=== PATIENT | male | born 1965 | race Caucasian/White ===

== ENCOUNTER 2024-03-05 06:25 | Inpatient (IN) | payer MEDICAID ==
[~2024-03-05] VITALS: Ht 190.5 cm; Wt 112.7 kg
[2024-03-05 07:21] LABS: Urine Bacteria None Seen /hpf (None Seen)
[2024-03-05 07:33] LABS: Basophils # (auto) 0.1 10 ^3/uL (0-0.2); Eosinophils # (auto) 0.1 10 ^3/uL (0-0.8); Eosinophils % (auto) 0.6 % (0.0-7.0); Hematocrit 43.5 % (41.0-53.0); Hemoglobin 14.6 g/dL (13.5-17.5); Lymphocytes # (auto) 1.6 10 ^3/uL (0.4-5.4); Lymphocytes % (auto) 19.3 % (10.0-50.0); Mean Corpuscular Hemoglobin 29.2 pg (28.0-32.0); Mean Corpuscular Hgb Conc. 33.6 g/dL (32.0-36.0); Mean Corpuscular Volume 86.9 fL (80.0-100.0); Monocytes # (auto) 0.6 10 ^3/uL (0-1.3); Monocytes % (auto) 7.6 % (0.0-12.0); Neutrophils % (auto) 71.5 % (37.0-80.0); Nucleated Red Blood Cells % 0.1 %; Platelet Count (auto) 199 10^3/uL (140-450); Red Blood Cells 5.01 10^6/uL (4.5-5.90); Red Cell Distribution Width 14.7 % (11.8-14.3); White Blood Cell 8.4 10^3/uL (4.4-10.8)
[2024-03-05 07:43] LABS: Chloride 103 mmol/L (98-107); Potassium 4.4 mmol/L (3.5-5.1)
[2024-03-05 07:44] LABS: Anion Gap 5 (5-15); Carbon Dioxide 27 mmol/L (20-31)
[2024-03-05 07:45] LABS: Calcium 10.3 mg/dL (8.7-10.4)
--- NOTE | 2024-03-05 07:46 | ED.PDOC ---
General HPI Comments 58 y/o M brought in y ambulance transferred from [facility] presents to ED for CC of abdominal pain. Patient states, that he has been experiencing abdominal pain since 2200 last night (03/05/24). Patient relays, that he went to [facility] to address symptoms; patient was said to have an obstructing 6mm kidney stones. Patient smokes tobacco and marijuana; denies illicit drug use. Patient denies hematuria, dysuria, flank pain, or frequency. No other symptoms or modifiers at this time. Chief Complaint: Abdominal Pain Time Seen by MD: 06:50 Reviewed notes: Nurses Notes, Medications, Allergies Information Source: Patient Mode of Arrival: EMS Severity: Mild Timing: Hours Duration: Since onset Prehospital treatment: None Symptoms: None History of: None Location: None Penile discharge: None Modifying factors: None associated signs and symptoms: Abdominal Pain Past Medical History PAST MEDICAL HISTORY: Denies Surgical History: Denies all surgeries Family History Family History: Unknown Social History Smoker: Non-Smoker Alcohol: Denies ETOH Use Drugs: Denies Drug Use Lives In: Home Constitutional: denies: chills, diaphoresis, fatigue, fever, malaise, sweats, weakness, others EENTM: denies: blurred vision, double vision, ear bleeding, ear discharge, ear drainage, ear pain, ear ringing, eye pain, eye redness, hearing loss, mouth pain, mouth swelling, nasal discharge, nose bleeding, nose congestion, nose pain, photophobia, tearing, throat pain, throat swelling, voice changes, others Respiratory: denies: cough, hemoptysis, orthopnea, SOB at rest, shortness of breath, SOB with excertion, stridor, wheezing, others Cardiovascular: denies: chest pain, dizzy spells, diaphoresis, Dyspnea on exertion, edema, irregular heart beat, left arm pain, lightheadedness, palpitations, PND, syncope, others Gastrointestinal: reports: abdominal pain; denies: abdomen distended, blood streaked bowels, constipated, diarrhea, dysphagia, difficulty swallowing, hematemesis, melena, nausea, poor appetite, poor fluid intake, rectal bleeding, rectal pain, vomiting, others Genitourinary: denies: burning, dysuria, flank pain, frequency, hematuria, incontinence, penile discharge, penile sore, pain, testicle pain, testicle swelling, urgency, others Neurological: denies: dizziness, fainting, headache, left sided numbness, left sided weakness, numbness, paresthesia, pre-existing deficit, right sided numbness, right sided weakness, seizure, speech problems, tingling, tremors, weakness, others Musculoskeletal: denies: back pain, gout, joint pain, joint swelling, muscle pain, muscle stiffness, neck pain, others Integumetry: denies: bruises, change in color, change in hair/nails, dryness, laceration, lesions, lumps, rash, wounds, others Allergic/Immunocompromised: denies: Difficulty Healing, Frequent Infections, Hives, Itching, others Hematologic/Lymphatic: denies: anemia, blood clots, easy bleeding, easy bruising, swollen glands, others Endocrine: denies: excessive hunger, excessive sweating, excessive thirst, excessive urination, flushing, intolerance to cold, intolerance to heat, unexp lained weight gain, unexplained weight loss, others Psychiatric: denies: anxiety, bipolar disorder, depression, hopeless, panic disorder, schizophrenia, sleepless, suicidal, others All Other Systems: Reviewed and Negative Physical Exam General Appearance: Moderate Distress HEENT: Normal ENT Inspection, Pharynx Normal, TMs Normal Neck: Full Range of Motion, Non-Tender, Normal, Normal Inspection Respiratory: Chest Non-Tender, Lungs Clear, No Accessory Muscle Use, No Respiratory Distress, Normal Breath Sounds Cardiovascular: No Edema, No JVD, No Murmur, No Gallop, Normal Peripheral Pulses, Regular Rate/Rhythm Breast Exam: Deferred Gastrointestinal: No Organomegaly, Non Tender, No Pulsatile Mass, Normal Bowel Sounds, Soft Genitalia: Deferred Pelvic: Deferred Rectal: Deferred Extremities: No calf tenderness, Normal capillary refill, Normal inspection, Normal range of motion, Non-tender, No pedal edema Musculoskeletal : Apperance: Normal Neurologic: Alert, roller skate assembler II-XII nml as Tested, No Motor Deficits, Normal Affect, Normal Mood, No Sensory Deficits Cerebellar Function: Normal Reflexes: Normal Skin: Dry, Normal Color, Warm Peripheral Pulses: 3+ Radial (R), 3+ Radial (L) Lymphatic: No Adenopathy Was a procedure done? Was a procedure done?: No Differential Diagnosis Kidney stone (Female): Musculoskeletal pain, Urinary obstruction, Urolithiasis Urinary Problem (Female): Impaction, Urolithiasis, UTI X-Ray, Labs, Meds, VS Vital Signs Date Time Temp Pulse Resp B/P (MAP) Pulse Ox O2 Delivery O2 Flow Rate FiO2 03/05/24 08:15 72 16 99 Room Air* 0 21 03/05/24 08:15 97.5 72 16 128/80 (96) 99 97.5 03/05/24 06:30 97.9 85 18 138/83 (101) 98 Lab Test 03/05/24 07:14 03/05/24 06:45 Range/Units White Blood Count 8.4 4.4-10.8 10^3/uL Red Blood Count 5.01 4.5-5.90 10^6/uL Hemoglobin 14.6 13.5-17.5 g/dL Hematocrit 43.5 41.0-53.0 % Mean Corpuscular Volume 86.9 80.0-100.0 fL Mean Corpuscular Hemoglobin 29.2 28.0-32.0 pg Mean Corpuscular Hemoglobin Concent 33.6 32.0-36.0 g/dL Red Cell Distribution Width 14.7 H 11.8-14.3 % Platelet Count 199 140-450 10^3/uL Mean Platelet Volume 8.4 6.9-10.8 fL Neutrophils (%) (Auto) 71.5 37.0-80.0 % Lymphocytes (%) (Auto) 19.3 10.0-50.0 % Monocytes (%) (Auto) 7.6 0.0-12.0 % Eosinophils (%) (Auto) 0.6 0.0-7.0 % Basophils (%) (Auto) 1.0 0.0-2.0 % Neutrophils # (Auto) 6.0 1.6-8.6 10 ^3/uL Lymphocytes # (Auto) 1.6 0.4-5.4 10 ^3/uL Monocytes # (Auto) 0.6 0-1.3 10 ^3/uL Eosinophils # (Auto) 0.1 0-0.8 10 ^3/uL Basophils # (Auto) 0.1 0-0.2 10 ^3/uL Nucleated Red Blood Cells 0.1 % Sodium Level 135 L 136-145 mmol/L Potassium Level 4.4 3.5-5.1 mmol/L Chloride Level 103 98-107 mmol/L Carbon Dioxide Level 27 20-31 mmol/L Anion Gap 5 5-15 Blood Urea Nitrogen 17 9-23 mg/dL Creatinine 1.55 H 0.700-1.30 mg/dL Glomerular Filtration Rate Calc 51 >90 mL/min BUN/Creatinine Ratio 11.0 10.0-20.0 Serum Glucose 97 74-106 mg/dL Calcium Level 10.3 8.7-10.4 mg/dL Urine Color Yellow Yellow Urine Clarity Turbid H Clear Urine pH 5.5 5.0-9.0 Urine Specific [place] 1.033 1.001-1.035 Urine Protein 1+ H Negative Urine Ketones Trace Negative Urine Blood 3+ H Negative /uL Urine Nitrite Negative Negative Urine Bilirubin Negative Negative Urine Urobilinogen Normal Negative mg/dL Urine Leukocyte Esterase 1+ Negative /uL Urine RBC 683 0 - 3 /hpf Urine Microscopic WBC 30 H 0-3 /HPF Urine Squamous Epithelial Cells Few <5 /hpf Urine Bacteria None seen None Seen /hpf Urine Hyaline Casts Few 0 - 2 /lpf Urine Mucus Few None Seen Urine Glucose Normal Normal mg/dL Patient alert. Complaining of abdominal pain. Transferred from [facility]. Vitals stable. Urinalysis shows blood. Establish intravenous access Was given fluids. Was given Rocephin. Was given Flomax. WBC within normal limits. Hemoglobin within normal limits. Possible kidney stone. Was given pain medication. Urology consultation. Reviewed his visit. Explained to the patient. Continue cardiac monitoring. Time of 1ST Reevaluation: 07:20 Reevaluation 1ST: Unchanged Patient Education/Counseling: Diagnosis, Treatment Family Education/Counseling: No Family Present Departure 1 Departure Time of Disposition: 08:59 Impression: Primary Impression: Kidney stone Additional Impression: Hematuria Qualified Codes: R31.9 - Hematuria, unspecified Disposition: ADMITTED INPATIENT Admit to: Med Surg Condition: Guarded Critical Care Note Critical Care Time?: No Stability Stability form required: No Heart Score Heart Score: Heart Score Response (Comments) Value History N/A 0 EKG N/A 0 Age N/A 0 Risk Factors N/A 0 Troponin N/A 0 Total 0 I personally scribed for NONA KIRKLAND MD ([email or web address]) on 03/05/24 at 07:46. Electronically submitted by Shannon Hays ([email or web address]). NONA KIRKLAND MD Mar 05, 2024 07:46
[2024-03-05 07:49] LABS: Glucose 97 mg/dL (74-106)
[2024-03-05 07:50] LABS: Blood Urea Nitrogen 17 mg/dL (9-23)
[2024-03-05 07:51] LABS: Sodium 135 mmol/L (136-145)
[2024-03-05 08:06] LABS: Urine Blood 3+ /uL (Negative); Urine Clarity Turbid (Clear); Urine Color Yellow (Yellow); Urine Hyaline Cast FEW /lpf (0 - 2); Urine Mucus FEW (None Seen); Urine Protein, UAD 1+ (Negative); Urine Specific Gravity 1.033 (1.001-1.035); Urine Squamous Epithelial Cell FEW /hpf (<5); Urine Urobilinogen Normal (Negative); Urine WBC 30 /HPF (0-3); Urine pH 5.5 (5.0-9.0)
[2024-03-05 08:15] VITALS: PULSE 72; RESP 16; O2SAT 99
[2024-03-05] MEDS: TAMSULOSIN HYDROCHLORIDE 0.4 MG CAP PO ONE (09:08)
[2024-03-05] MEDS: cefTRIAXone 1GM/50ML D5W 50 ML IV ONE (09:08)
[2024-03-05] MEDS: KETOROLAC TROMETH 30 MG/ML 1ML VIAL IV ONE (09:08)
--- NOTE | 2024-03-05 10:11 | DVH ---
RENAL ULTRASOUND CLINICAL HISTORY: r/o kidney stones TECHNIQUE: Multiple ultrasound images of the kidneys and bladder were obtained. COMPARISON: None FINDINGS: The right kidney measures 11 cm in length. The left kidney measures 13 cm. The kidneys demonstrate ap propriate echotexture. There is a 5.4 x 4.2 cm cyst in the lower pole the left kidney. There is a 9 mm calculus seen in the distal left ureter near the UVJ. There is left renal hydronephrosis. There is no evidence of right renal nephrolithiasis or hydronephrosis. There is small amount of nonspecific perinephric fluid. The bladder appears within normal limits with prevoid volume measuring 178 cc. IMPRESSION: 1. 9 mm calculus seen in the distal left ureter near the UVJ. There is left renal hydronephrosis. 2. There is small amount of nonspecific perinephric fluid. 3. 5.4 cm left lower pole renal cyst. 4. There is no sonographic evidence of nephrolithiasis or hydronephrosis in the right kidney. HS:Y
[2024-03-05] MEDS ORDERED: HYDR25TA5 (11:11)
[2024-03-05] MEDS ORDERED: LISI20TA56 (11:11)
[2024-03-05] MEDS: SODIUM CHLORIDE 0.9% 1,000 ML IV SCH (11:15)
[2024-03-05] MEDS ORDERED: cefTRIAXone 1GM/50ML D5W 50 ML IV ONE (11:15)
[2024-03-05] MEDS ORDERED: HYDROcodone-ACET 5/325MG TAB PO PRN (11:15)
[2024-03-05] MEDS ORDERED: ONDANSETRON HCL 4 MG/2 ML VIAL IV PRN (11:15)
[2024-03-05] MEDS ORDERED: MORPHINE SULFATE INJ 2 MG/ml SYRG IV PRN (11:15)
[2024-03-05] MEDS ORDERED: ACETAMINOPHEN 325 MG TAB PO PRN (11:15)
[2024-03-05 11:45] VITALS: BP 117/80; PULSE 71; RESP 18; TEMP 97.7; O2SAT 98
--- NOTE | 2024-03-05 12:10 | DVHHP2 ---
History of Present Illness Reason for Visit: Abdominal pain History of Present Illness Alfred Zaman is a 58-year-old male with past medical history of hypertension who presents to the ED for lower abdominal pain since last night at 10:00 p.m.. Patient states that he the pain is 10/10 dull and constant. Patient reports radha t there are no triggering or alleviating factors. Patient reports no recent illnesses or recent sick contacts or recent ingestion of spoiled food. Patient denies any chest pain, nausea, vomiting, diarrhea, shortness of breath, fever, chills, lightheadedness, and weakness. Patient reports that when he was at [facility] dad stated he had a kidney stone. Cardiovascular: HTN Past Surgical History: None Family History: DM, Hypertension, Other (Mom with diabetes and hypertension) Smoke: <1 pack per day ALCOHOL: occassional Drugs: Marijuana Lives: Alone Domestic Violence: Neg Review of Systems Constitutional: No: Fever, Chills, Sweats, Weakness, Malaise, Other Eyes: No: Pain, Vision change, Conjunctivae inflammation, Eyelid inflammation, Other, Redness ENT: No: Ear pain, Ear discharge, Nose pain, Nose discharge, Nose congestion, Mouth pain, Mouth swelling, Throat pain, Throat swelling, Other Respiratory: No: Cough, Dry, Shortness of breath, SOB with excertion, Wheezing, Hemoptysis, Pleuritic Pain, Sputum, Wheezing, Other Cardiovascular: No: Chest Pain, Palpitations, Orthopnea, Paroxysmal Noc. Dyspnea, Edema, Lt Headedness, Other Gastrointestinal: Abdominal Pain; No: Nausea, Vomiting, Diarrhea, Constipation, Melena, Hematochezia, Other Genitourinary: No Dysuria, No Frequency, No Incontinence, No Hematuria, No Retention, No Other Musculoskeletal: No: other, neck pain, shoulder pain, arm pain, back pain, hand pain, leg pain, foot pain Skin: No: Rash, Lesions, Jaundice, Bruising, Other Neurological: No: Weakness, Numbness, Incoordination, Change in speech, Confusion, Seizures, Other Allergies: Coded Allergies: Penicillins (Verified Allergy, Unknown, 03/05/24) Exam Vital Signs Vital Signs Date Time Temp Pulse Resp B/P (MAP) Pulse Ox O2 Delivery O2 Flow Rate FiO2 03/05/24 09:31 98.4 64 18 124/88 (100) 99 98.4 03/05/24 08:15 Room Air* 0 21 General Appearance: Alert, Oriented X3, Cooperative, No acute distress HEENT: Atraumatic, PERRLA, EOMI, Mucous membr. moist/pink Respiratory: Clear to auscultation, Normal air movement Cardiovascular: Regular rate, Normal S1, Normal S2, No murmurs Abdominal: Normal bowel sounds, Soft, No tenderness, No hepatospenomegaly, No masses Extremities: No clubbing, No cyanosis, No edema, Normal pulses, No tenderness/swelling Skin: No rashes, No breakdown, No significant lesion Neuro: Normal gait, Normal speech, Strength at 5/5 X4 ext, Normal tone Psych/Mental Status: Mental status NL, Mood NL Labs/Xrays Labs Test 03/05/24 07:14 03/05/24 06:45 Range/Units White Blood Count 8.4 4.4-10.8 10^3/uL Red Blood Count 5.01 4.5-5.90 10^6/uL Hemoglobin 14.6 13.5-17.5 g/dL Hematocrit 43.5 41.0-53.0 % Mean Corpuscular Volume 86.9 80.0-100.0 fL Mean Corpuscular Hemoglobin 29.2 28.0-32.0 pg Mean Corpuscular Hemoglobin Concent 33.6 32.0-36.0 g/dL Red Cell Distribution Width 14.7 H 11.8-14.3 % Platelet Count 199 140-450 10^3/uL Mean Platelet Volume 8.4 6.9-10.8 fL Neutrophils (%) (Auto) 71.5 37.0-80.0 % Lymphocytes (%) (Auto) 19.3 10.0-50.0 % Monocytes (%) (Auto) 7.6 0.0-12.0 % Eosinophils (%) (Auto) 0.6 0.0-7.0 % Basophils (%) (Auto) 1.0 0.0-2.0 % Neutrophils # (Auto) 6.0 1.6-8.6 10 ^3/uL Lymphocytes # (Auto) 1.6 0.4-5.4 10 ^3/uL Monocytes # (Auto) 0.6 0-1.3 10 ^3/uL Eosinophils # (Auto) 0.1 0-0.8 10 ^3/uL Basophils # (Auto) 0.1 0-0.2 10 ^3/uL Nucleated Red Blood Cells 0.1 % Sodium Level 135 L 136-145 mmol/L Potassium Level 4.4 3.5-5.1 mmol/L Chloride Level 103 98-107 mmol/L Carbon Dioxide Level 27 20-31 mmol/L Anion Gap 5 5-15 Blood Urea Nitrogen 17 9-23 mg/dL Creatinine 1.55 H 0.700-1.30 mg/dL Glomerular Filtration Rate Calc 51 >90 mL/min BUN/Creatinine Ratio 11.0 10.0-20.0 Serum Glucose 97 74-106 mg/dL Calcium Level 10.3 8.7-10.4 mg/dL Urine Color Yellow Yellow Urine Clarity Turbid H Clear Urine pH 5.5 5.0-9.0 Urine Specific [place] 1.033 1.001-1.035 Urine Protein 1+ H Negative Urine Ketones Trace Negative Urine Blood 3+ H Negative /uL Urine Nitrite Negative Negative Urine Bilirubin Negative Negative Urine Urobilinogen Normal Negative mg/dL Urine Leukocyte Esterase 1+ Negative /uL Urine RBC 683 0 - 3 /hpf Urine Microscopic WBC 30 H 0-3 /HPF Urine Squamous Epithelial Cells Few <5 /hpf Urine Bacteria None seen None Seen /hpf Urine Hyaline Casts Few 0 - 2 /lpf Urine Mucus Few None Seen Urine Glucose Normal Normal mg/dL RENAL ULTRASOUND CLINICAL HISTORY: r/o kidney stones TECHNIQUE: Multiple ultrasound images of the kidneys and bladder were obtained. COMPARISON: None FINDINGS: The right kidney measures 11 cm in length. The left kidney measures 13 cm. The kidneys demonstrate appropriate echotexture. There is a 5.4 x 4.2 cm cyst in the lower pole the left kidney. There is a 9 mm calculus seen in the distal left ureter near the UVJ. There is left renal hydronephrosis. There is no evidence of right renal nephrolithiasis or hydronephrosis. There is small amount of nonspecific perinephric fluid. The bladder appears within normal limits with prevoid volume measuring 178 cc. IMPRESSION: 1. 9 mm calculus seen in the distal left ureter near the UVJ. There is left r enal hydronephrosis. 2. There is small amount of nonspecific perinephric fluid. 3. 5.4 cm left lower pole renal cyst. 4. There is no sonographic evidence of nephrolithiasis or hydronephrosis in the right kidney. CT ABDOMEN AND PELVIS WITHOUT CONTRAST CLINICAL HISTORY: abd pain TECHNIQUE: Multiple contiguous axial images of the abdomen and pelvis without intravenous contrast. The images were reformatted degenerate coronal and sagittal reconstructions. All CT scans at this medical facility are performed using dose modulation techniques as appropriate to a performed exam including the following:Automated exposure control was utilized; adjustment of the MA and/or KV according to patient size; and use of iterative reconstruction technique. Radiation Dose Information: CT Dose: CTDI volume is 21.46 mGy. Dose-length product is 1170.88 mGy*cm Comparison: None FINDINGS: Evaluation of the abdomen and pelvis is limited without intravenous contrast. There is a 9 mm calculus in the distal left ureter near the UVJ. There is left hydroureteronephrosis. There is moderatefat stranding surrounding the left kidney. There is no evidence of a renal calculus. There is a 4.5 cm left renal cyst. There is no evidence of right ureteral calculus or hydroureter. The liver, gallbladder, pancreas, adrenal glands, and spleen appear within normal limits. There is no gross evidence of abdominal lymphadenopathy. There is no free fluid or free air. The stomach grossly appears unremarkable. The small and large bowel loops demonstrate normal caliber. There are scattered diverticula in the colon without evidence of acute diverticulitis. The abdominal aorta and IVC appear within normal limits. The bladder appears unremarkable for the degree of distention. Pelvic organ appears within normal limits. There is no gross evidence of a pelvic mass. There is no free fluid collection. Lung bases are clear. There is no acute osseous abnormality. IMPRESSION: 1. 9 mm obstructing calculus in the distal left ureter near the UVJ. There is left hydroureteronephrosis. There is moderate fat stranding surrounding the left kidney which May relate to secondary inflammation. 2. Colonic diverticulosis without evidence of acute diverticulitis. Assessment/Plan Assessment/Plan Assessment/Plan: Intractable abdominal pain possibly due to UTI CHINO 9 mm calculus seen in the distal left ureter near the UVJ. Left renal hydronephrosis. Labs IV fluids IV antibiotics-ceftriaxone Flomax Pain management Urine bacterial culture Ultrasound kidney Antiemetics Pain management CT A/P urology consult Chronic hypertension Continue home medications Obesity Counseled patient on lifestyle modifications, diet, and exercise Substance abuse Counseled patient on cessation of substance use Tobacco abuse Counseled patient on cessation of tobacco use FEN/PPX Diet IV fluids DVT prophylaxis not indicated patient ambulating PUD prophylaxis not indicated patient no history of GI bleed or GERD Admit to med surg Home medications reconciled Discussed plan of care with patient and nurse Plan discussed with: Patient My Orders Orders - BEL PICKETT Procedure Category Date Status Time Kidney US 03/05/24 Resulted 09:31 Ceftriaxone Ivpb PHA 03/05/24 Transmitted Rocephin 11:15 Ceftriaxone Ivpb PHA 03/06/24 Transmitted Rocephin 09:00 Tamsulosin PHA 03/05/24 Transmitted Hydrochloride (Flomax) 18:00 NS PHA 03/05/24 Transmitted 11:15 Admit ADMIT 03/05/24 Transmitted 11:09 Allergies CLIFF 03/05/24 Transmitted 11:09 Code Status CODE 03/05/24 Transmitted 11:09 Renal DIET 03/05/24 Transmitted Standard(2gna,3gk,Lopho) Lunch Hydrocodone-Acet PHA 03/05/24 Transmitted 5/325mg Tab ([place] 11:15 Ondansetron Hcl PHA 03/05/24 Transmitted (Zofran) 11:15 Complete Blood Count LAB 03/06/24 Verified 04:00 Comprehensive LAB 03/06/24 Verified Metabolic Panel 04:00 Acetaminophen Tablet PHA 03/05/24 Transmitted (Tylenol Tablet) 11:15 Morphine Sulfate PHA 03/05/24 Transmitted Injection 11:15 Date of Service: Mar 05, 2024 Billing Provider: NICKIE MATIAS Common Visit Codes: [id number] INP/OBS CARE (HIGH) BEL PICKETT Mar 05, 2024 12:10
--- NOTE | 2024-03-05 12:37 | DVH ---
CT ABDOMEN AND PELVIS WITHOUT CONTRAST CLINICAL HISTORY: abd pain TECHNIQUE: Multiple contiguous axial images of the abdomen and pelvis without intravenous contrast. The images were reformatted degenerate coronal and sagittal reconstructions. All CT scans at this medical facility are performed using dose modulation techniques as appropriate t o a performed exam including the following:Automated exposure control was utilized; adjustment of the MA and/or KV according to patient size; and use of iterative reconstruction technique. Radiation Dose Information: CT Dose: CTDI volume is 21.46 mGy. Dose-length product is 1170.88 mGy*cm Comparison: None FINDINGS: Evaluation of the abdomen and pelvis is limited without intravenous contrast. There is a 9 mm calculus in the distal left ureter near the UVJ. There is left hydroureteronephrosis. There is moderatefat stranding surrounding the left kidney. There is no evidence of a renal calculus . There is a 4.5 cm left renal cyst. There is no evidence of right ureteral calculus or hydroureter. The liver, gallbladder, pancreas, adrenal glands, and spleen appear within normal limits. There is no gross evidence of abdominal lymphadenopathy. There is no free fluid or free air. The stomach grossly appears unremarkable. The small and large bowel loops demonstrate normal caliber . There are scattered diverticula in the colon without evidence of acute diverticulitis. The abdominal aorta and IVC appear within normal limits. The bladder appears unremarkable for the degree of distention. Pelvic organ appears within normal [place] its. There is no gross evidence of a pelvic mass. There is no free fluid collection. Lung bases are clear. There is no acute osseous abnormality. IMPRESSION: 1. 9 mm obstructing calculus in the distal left ureter near the UVJ. There is left hydroureteronephro sis. There is moderate fat stranding surrounding the left kidney which May relate to secondary infla mmation. 2. Colonic diverticulosis without evidence of acute diverticulitis. HS:Y
--- NOTE | 2024-03-05 13:38 | DVH ---
CHEST RADIOGRAPH Indication: abd pain Technique: Single frontal view of the chest was obtained COMPARISON: None FINDINGS: Lines and Tubes: None Lungs: Clear Pleura: No effusion. No pneumothorax. Cardiomediastinal contours: Unremarkable Bones: Unremarkable IMPRESSION: No acute disease.
--- NOTE | 2024-03-05 14:02 | DVHINCON2 ---
Date of service: Mar 05, 2024 Referring Physician Hospitalist Reason for Consultation ureteral stone. History of Present Illness History Source: Patient, RN Notes, Old Records Exam Limitations: No limitations HPI 58 yo male with known kidney stone presents with c/o left flank pain. He is seen in ER holding area eating lunch. No complaints at this time. Denies fever, chills, n/v hematuria. Home Meds Reported Medications Hctz (Hydrochlorothiazide) 25 Mg Tab, 1 DAILY 03/05/24 Lisinopril (Lisinopril) 20 Mg Tab, 1 DAILY 03/05/24 H&P Exam Vital Signs Vital Signs Date Time Temp Pulse Resp B/P (MAP) Pulse Ox O2 Delivery O2 Flow Rate FiO2 03/05/24 11:45 97.7 71 18 117/80 (92) 98 97.7 03/05/24 08:15 Room Air* 0 21 General Appeara: Well developed, Well nourished, Normal Appearance, Obese Neuro/Mental St: Alert, Oriented Appearance: Appropriate appearance, Appropriate insight Eye contact/ Speech: Cooperative, Good eye contact, Normal speech Skin Exam: Normal inspection, Normal color, Warm/dry Labs/Xrays [place] [address] Ph: [phone] DIAGNOSTIC IMAGING Diagnostic Imaging Report : [id number] Signed PATIENT: TEMO PANTOJA ACCT: [id number] UNIT: [id number] : 1965 LOC: OVERFLOW ROOM / BED: [address] [place] [address] / AGE / SEX: 58 / M ADM STATUS: ADM IN SERVICE 1212 ORDERING PHYSICIAN: BEL PICKETT CABINETMAKER HELPER PROCEDURE(s): ABPL - CT AB PEL WO CON-NO ORAL OR IV REASON: abd pain ORDER NUMBER(s): [id number], ACCESSION NUMBER(s): [id number] CT ABDOMEN AND PELVIS WITHOUT CONTRAST CLINICAL HISTORY: abd pain TECHNIQUE: Multiple contiguous axial images of the abdomen and pelvis without intravenous contrast. The images were reformatted degenerate coronal and sagittal reconstructions. All CT scans at this medical facility are performed using dose modulation techniques as appropriate to a performed exam including the following:Automated exposure control was utilized; adjustment of the MA and/or KV according to patient size; and use of iterative reconstruction technique. Radiation Dose Information: CT Dose: CTDI volume is 21.46 mGy. Dose-length product is 1170.88 mGy*cm Comparison: None FINDINGS: Evaluation of the abdomen and pelvis is limited without intravenous contrast. There is a 9 mm calculus in the distal left ureter near the UVJ. There is left hydroureteronephrosis. There is moderatefat stranding surrounding the left kidney. There is no evidence of a renal calculus. There is a 4.5 cm left renal cyst. There is no evidence of right ureteral calculus or hydroureter. The liver, gallbladder, pancreas, adrenal glands, and spleen appear within normal limits. There is no gross evidence of abdominal lymphadenopathy. There is no free fluid or free air. The stomach grossly appears unremarkable. The small and large bowel loops demonstrate normal caliber. There are scattered diverticula in the colon without evidence of acute diverticulitis. The abdominal aorta and IVC appear within normal limits. The bladder appears unremarkable for the degree of distention. Pelvic organ appears within normal limits. There is no gross evidence of a pelvic mass. There is no free fluid collection. Lung bases are clear. There is no acute osseous abnormality. IMPRESSION: 1. 9 mm obstructing calculus in the distal left ureter near the UVJ. There is left hydroureteronephrosis. There is moderate fat stranding surrounding the left kidney which May relate to secondary inflammation. 2. Colonic diverticulosis without evidence of acute diverticulitis. HS:Y ATED BY: ADRIAN CHRISTIANSON MD DICTATED DATE/TIME: 03/05/24 1235 SIGNED BY: ADRIAN CHRISTIANSON MD SIGNED DATE/TIME: 03/05/24 1235 CC: Labs Test 03/05/24 07:14 03/05/24 06:45 Range/Units White Blood Count 8.4 4.4-10.8 10^3/uL Red Blood Count 5.01 4.5-5.90 10^6/uL Hemoglobin 14.6 13.5-17.5 g/dL Hematocrit 43.5 41.0-53.0 % Mean Corpuscular Volume 86.9 80.0-100.0 fL Mean Corpuscular Hemoglobin 29.2 28.0-32.0 pg Mean Corpuscular Hemoglobin Concent 33.6 32.0-36.0 g/dL Red Cell Distribution Width 14.7 H 11.8-14.3 % Platelet Count 199 140-450 10^3/uL Mean Platelet Volume 8.4 6.9-10.8 fL Neutrophils (%) (Auto) 71.5 37.0-80.0 % Lymphocytes (%) (Auto) 19.3 10.0-50.0 % Monocytes (%) (Auto) 7.6 0.0-12.0 % Eosinophils (%) (Auto) 0.6 0.0-7.0 % Basophils (%) (Auto) 1.0 0.0-2.0 % Neutrophils # (Auto) 6.0 1.6-8.6 10 ^3/uL Lymphocytes # (Auto) 1.6 0.4-5.4 10 ^3/uL Monocytes # (Auto) 0.6 0-1.3 10 ^3/uL Eosinophils # (Auto) 0.1 0-0.8 10 ^3/uL Basophils # (Auto) 0.1 0-0.2 10 ^3/uL Nucleated Red Blood Cells 0.1 % Sodium Level 135 L 136-145 mmol/L Potassium Level 4.4 3.5-5.1 mmol/L Chloride Level 103 98-107 mmol/L Carbon Dioxide Level 27 20-31 mmol/L Anion Gap 5 5-15 Blood Urea Nitrogen 17 9-23 mg/dL Creatinine 1.55 H 0.700-1.30 mg/dL Glomerular Filtration Rate Calc 51 >90 mL/min BUN/Creatinine Ratio 11.0 10.0-20.0 Serum Glucose 97 74-106 mg/dL Calcium Level 10.3 8.7-10.4 mg/dL Urine Color Yellow Yellow Urine Clarity Turbid H Clear Urine pH 5.5 5.0-9.0 Urine Specific [place] 1.033 1.001-1.035 Urine Protein 1+ H Negative Urine Ketones Trace Negative Urine Blood 3+ H Negative /uL Urine Nitrite Negative Negative Urine Bilirubin Negative Negative Urine Urobilinogen Normal Negative mg/dL Urine Leukocyte Esterase 1+ Negative /uL Urine RBC 683 0 - 3 /hpf Urine Microscopic WBC 30 H 0-3 /HPF Urine Squamous Epithelial Cells Few <5 /hpf Urine Bacteria None seen None Seen /hpf Urine Hyaline Casts Few 0 - 2 /lpf Urine Mucus Few None Seen Urine Glucose Normal Normal mg/dL Assessment/Plan Problem List: (1) Kidney stone (2) Hematuria (3) Hydronephrosis with obstructing calculus Plan pain control fluids expulsive measures left URSLL TBA outpt AVSC on Plan discussed with: Patient, Other BRYN DUMONT BUTTONHOLER Mar 05, 2024 14:02
[2024-03-05 14:20] LABS: INR 0.95 (0.9-1.15); Prothrombin Time 10.1 sec (9.3-11.8)
[2024-03-05 16:42] VITALS: BP 110/69; PULSE 84; RESP 18; TEMP 98; O2SAT 97
[2024-03-05] MEDS: TAMSULOSIN HYDROCHLORIDE 0.4 MG CAP PO SCH (17:27)
[2024-03-05 20:00] VITALS: BP 117/76; PULSE 77; TEMP 98.6; O2SAT 96
[2024-03-05 22:21] VITALS: BP 115/78; PULSE 75; RESP 18; TEMP 98.3; O2SAT 96
[2024-03-06 01:00] VITALS: BP 110/77; PULSE 82; RESP 17; TEMP 98.6; O2SAT 97
[2024-03-06 05:00] VITALS: BP 120/82; PULSE 76; RESP 18; TEMP 98.5; O2SAT 95
[2024-03-06 07:38] LABS: Basophils # (auto) 0 10 ^3/uL (0-0.2); Basophils % (auto) 0.8 % (0.0-2.0); Eosinophils # (auto) 0.1 10 ^3/uL (0-0.8); Hematocrit 41.7 % (41.0-53.0); Hemoglobin 14.3 g/dL (13.5-17.5); Lymphocytes # (auto) 1.4 10 ^3/uL (0.4-5.4); Lymphocytes % (auto) 29.5 % (10.0-50.0); Mean Corpuscular Hemoglobin 29.7 pg (28.0-32.0); Mean Corpuscular Hgb Conc. 34.4 g/dL (32.0-36.0); Mean Corpuscular Volume 86.5 fL (80.0-100.0); Monocytes # (auto) 0.4 10 ^3/uL (0-1.3); Monocytes % (auto) 8.6 % (0.0-12.0); Neutrophils # (auto) 2.8 10 ^3/uL (1.6-8.6); Neutrophils % (auto) 59.1 % (37.0-80.0); Nucleated Red Blood Cells % 0.1 %; Platelet Count (auto) 175 10^3/uL (140-450); Red Blood Cells 4.82 10^6/uL (4.5-5.90); Red Cell Distribution Width 14.8 % (11.8-14.3); White Blood Cell 4.7 10^3/uL (4.4-10.8)
[2024-03-06 07:50] LABS: Alanine Aminotransferase 18 U/L (7-40); Alkaline Phosphatase 84 U/L (46-116); Anion Gap 7 (5-15); Aspartate Aminotransferase 13 U/L (13-40); BUN/Creatinine Ratio 14.5 (10.0-20.0); Bilirubin, Total 0.5 mg/dL (0.2-1.0); Blood Urea Nitrogen 16 mg/dL (9-23); Carbon Dioxide 26 mmol/L (20-31); Chloride 105 mmol/L (98-107); Glucose 85 mg/dL (74-106); Potassium 4.6 mmol/L (3.5-5.1); Sodium 138 mmol/L (136-145)
[2024-03-06 07:51] LABS: Total Protein 6.7 g/dL (5.7-8.2)
[2024-03-06 08:00] VITALS: PULSE 76; RESP 18; O2SAT 95
[2024-03-06 08:51] VITALS: BP 112/73; PULSE 70; RESP 17; TEMP 97.8; O2SAT 95
[2024-03-06] MEDS: cefTRIAXone 1GM/50ML D5W 50 ML IV SCH (09:18)
[2024-03-06 12:06] LABS: PSA Free 0.12 ng/mL; Prostate Specific Antigen 0.8 ng/mL (0.0-4.0)
[2024-03-06 12:31] VITALS: TEMP 36.6
--- NOTE | 2024-03-06 16:21 | DVHDSRES ---
Discharge Summary Date of Admission Resident Creating Document: FELY BECERRA RESIDENT Mar 05, 2024 at 11:09 Date of Discharge: Mar 06, 2024 Admitting Diagnosis Nephrolithiasis with hydronephrosis Lower abdominal pain Labs/Diagnostic Data: PATIENT: ALFRED PANTOJA ACCT: [id number] UNIT: [id number] : 1965 [facility]GE / SEX: 58 / M ADM STATUS: ADM IN SERVICE 1318 ORDERING PHYSICIAN: BEL PICKETT CENTERLESS GRINDER SET UP OPERATOR PROCEDURE(s): CXR1 - CHEST XRAY 1 VIEW REASON: abd pain ORDER NUMBER(s): [id number], ACCESSION NUMBER(s): [id number] CHEST RADIOGRAPH Indication: abd pain Technique: Single frontal view of the chest was obtained COMPARISON: None FINDINGS: Lines and Tubes: None Lungs: Clear Pleura: No effusion. No pneumothorax. Cardiomediastinal contours: Unremarkable Bones: Unremarkable IMPRESSION: No acute disease. ATED BY: GABE MA MD DICTATED DATE/TIME: 03/05/24 1335 PATIENT: ALFRED PANTOJA ACCT: [id number] UNIT: [id number] : 1965 LOC: OVERFLOW ROOM / BED: [address] [place] [address] / A AGE / SEX: 58 / M ADM STATUS: ADM IN SERVICE 1212 ORDERING PHYSICIAN: BEL PICKETT CENTERLESS GRINDER SET UP OPERATOR PROCEDURE(s): ABPL - CT AB PEL WO CON-NO ORAL OR IV REASON: abd pain ORDER NUMBER(s): [id number], ACCESSION NUMBER(s): [id number] CT ABDOMEN AND PELVIS WITHOUT CONTRAST CLINICAL HISTORY: abd pain TECHNIQUE: Multiple contiguous axial images of the abdomen and pelvis without intravenous contrast. The images were reformatted degenerate coronal and sagittal reconstructions. All CT scans at this medical facility are performed using dose modulation techniques as appropriate to a performed exam including the following:Automated exposure control was utilized; adjustment of the MA and/or KV according to patient size; and use of iterative reconstruction technique. Radiation Dose Information: CT Dose: CTDI volume is 21.46 mGy. Dose-length product is 1170.88 mGy*cm Comparison: None FINDINGS: Evaluation of the abdomen and pelvis is limited without intravenous contrast. There is a 9 mm calculus in the distal left ureter near the UVJ. There is left hydroureteronephrosis. There is moderatefat stranding surrounding the left kidney. There is no evidence of a renal calculus. There is a 4.5 cm left renal cyst. There is no evidence of right ureteral calculus or hydroureter. The liver, gallbladder, pancreas, adrenal glands, and spleen appear within normal limits. There is no gross evidence of abdominal lymphadenopathy. There is no free fluid or free air. The stomach grossly appears unremarkable. The small and large bowel loops demonstrate normal caliber. There are scattered diverticula in the colon without evidence of acute diverticulitis. The abdominal aorta and IVC appear within normal limits. The bladder appears unremarkable for the degree of distention. Pelvic organ appears within normal limits. There is no gross evidence of a pelvic mass. There is no free fluid collection. Lung bases are clear. There is no acute osseous abnormality. IMPRESSION: 1. 9 mm obstructing calculus in the distal left ureter near the UVJ. There is left hydroureteronephrosis. There is moderate fat stranding surrounding the left kidney which May relate to secondary inflammation. 2. Colonic diverticulosis without evidence of acute diverticulitis. HS:Y ATED BY: ADRIAN CHRISTIANSON MD DICTATED DATE/TIME: 03/05/24 1235 PATIENT: ALFRED PANTOJA ACCT: [id number] UNIT: [id number] : 1965 LOC: ER ROOM / BED: / AGE / SEX: 58 / M ADM STATUS: REG ER SERVICE 0931 ORDERING PHYSICIAN: BEL PICKETT PROCEDURE(s): KIDUS - KIDNEY REASON: r/o kidney stones ORDER NUMBER(s): [id number], ACCESSION NUMBER(s): [id number] RENAL ULTRASOUND CLINICAL HISTORY: r/o kidney stones TECHNIQUE: Multiple ultrasound images of the kidneys and bladder were obtained. COMPARISON: None FINDINGS: The right kidney measures 11 cm in length. The left kidney measures 13 cm. The kidneys demonstrate appropriate echotexture. There is a 5.4 x 4.2 cm cyst in the lower pole the left kidney. There is a 9 mm calculus seen in the distal left ureter near the UVJ. There is left renal hydronephrosis. There is no evidence of right renal nephrolithiasis or hydronephrosis. There is small amount of nonspecific perinephric fluid. The bladder appears within normal limits with prevoid volume measuring 178 cc. IMPRESSION: 1. 9 mm calculus seen in the distal left ureter near the UVJ. There is left renal hydronephrosis. 2. There is small amount of nonspecific perinephric fluid. 3. 5.4 cm left lower pole renal cyst. 4. There is no sonographic evidence of nephrolithiasis or hydronephrosis in the right kidney. HS:Y ATED BY: ADRIAN CHRISTIANSON MD DICTATED DATE/TIME: 03/05/24 1009 Laboratory Results Test 03/06/24 06:40 03/05/24 16:20 03/05/24 13:45 03/05/24 07:14 White Blood Count 4.7 10^3/uL (4.4-10.8) Red Blood Count 4.82 10^6/uL (4.5-5.90) Hemoglobin 14.3 g/dL (13.5-17.5) Hematocrit 41.7 % (41.0-53.0) Mean Corpuscular Volume 86.5 fL (80.0-100.0) Mean Corpuscular Hemoglobin 29.7 pg (28.0-32.0) Mean Corpuscular Hemoglobin Concent 34.4 g/dL (32.0-36.0) Red Cell Distribution Width 14.8 % (11.8-14.3) Platelet Count 175 10^3/uL (140-450) Mean Platelet Volume 8.6 fL (6.9-10.8) Neutrophils (%) (Auto) 59.1 % (37.0-80.0) Lymphocytes (%) (Auto) 29.5 % (10.0-50.0) Monocytes (%) (Auto) 8.6 % (0.0-12.0) Eosinophils (%) (Auto) 2.0 % (0.0-7.0) Basophils (%) (Auto) 0.8 % (0.0-2.0) Neutrophils # (Auto) 2.8 10 ^3/uL (1.6-8.6) Lymphocytes # (Auto) 1.4 10 ^3/uL (0.4-5.4) Monocytes # (Auto) 0.4 10 ^3/uL (0-1.3) Eosinophils # (Auto) 0.1 10 ^3/uL (0-0.8) Basophils # (Auto) 0 10 ^3/uL (0-0.2) Nucleated Red Blood Cells 0.1 % Sodium Level 138 mmol/L (136-145) Potassium Level 4.6 mmol/L (3.5-5.1) Chloride Level 105 mmol/L (98-107) Carbon Dioxide Level 26 mmol/L (20-31) Anion Gap 7 (5-15) Blood Urea Nitrogen 16 mg/dL (9-23) Creatinine 1.10 mg/dL (0.700-1.30) Glomerular Filtration Rate Calc 77 mL/min (>90) BUN/Creatinine Ratio 14.5 (10.0-20.0) Serum Glucose 85 mg/dL (74-106) Calcium Level 10.0 mg/dL (8.7-10.4) Total Bilirubin 0.5 mg/dL (0.2-1.0) Aspartate Amino Transferase (AST) 13 U/L (13-40) Alanine Aminotransferase (ALT) 18 U/L (7-40) Alkaline Phosphatase 84 U/L (46-116) Total Protein 6.7 g/dL (5.7-8.2) Albumin 4.0 g/dL (3.2-4.8) POC Glucose 82 mg/dl (70-106) Prothrombin Time 10.1 sec (9.3-11.8) Prothrombin Time INR 0.95 (0.9-1.15) Free Prostate Specific Antigen 0.12 ng/mL (N/A) Percent Free Prostate Specific Ag 15.0 % (.) Prostate Specific Antigen Total 0.8 ng/mL (0.0-4.0) Test 03/05/24 06:45 Urine Color Yellow (Yellow) Urine Clarity Turbid (Clear) Urine pH 5.5 (5.0-9.0) Urine Specific [place] 1.033 (1.001-1.035) Urine Protein 1+ (Negative) Urine Ketones Trace (Negative) Urine Blood 3+ /uL (Negative) Urine Nitrite Negative (Negative) Urine Bilirubin Negative (Negative) Urine Urobilinogen Normal mg/dL (Negative) Urine Leukocyte Esterase 1+ /uL (Negative) Urine RBC 683 /hpf (0 - 3) Urine Microscopic WBC 30 /HPF (0-3) Urine Squamous Epithelial Cells Few /hpf (<5) Urine Bacteria None seen /hpf (None Seen) Urine Hyaline Casts Few /lpf (0 - 2) Urine Mucus Few (None Seen) Urine Glucose Normal mg/dL (Normal) Other Laboratory Tests 03/06/24 06:40 Brief Hx & Hospital Course: Brief HPI Alfred Pantoja is a 58-year-old male with past medical history of hypertension who presents to the ED for lower abdominal pain since last night at 10:00 p.m.. Patient states that he the pain is 10/10 dull and constant. Patient reports that there are no triggering or alleviating factors. Patient reports no recent illnesses or recent sick contacts or recent ingestion of spoiled food. Patient denies any chest pain, nausea, vomiting, diarrhea, shortness of breath, fever, chills, lightheadedness, and weakness. Vitals are within normal limits and lab is also grossly unremarkable. Renal US Shows 9 mm calculus seen in the distal left ureter near the UVJ. There is left renal hydronephrosis. Brief Hospital course In the hospital, patient was seen by the urology team and evaluated. Based on their assessment, patient has been scheduled for left URSLL ( lithotripsy) on at their office. He was given Orange and I agree adequate fluid hydration. And plan is to discharge him home tonight for him to have the procedure done tomorrow outpatient. Examination General Appearance: Alert, Oriented X3, Cooperative, No acute distress HEENT: Atraumatic, PERRLA, EOMI, Mucous membrane moist/pink Respiratory: Clear to auscultation, Normal air movement Cardiovascular: Regular rate, Normal S1, Normal S2, No murmurs, no chest wall tenderness Abdominal: NO distention, no tenderness, bowel sounds present, no scars noted Extremities: No clubbing, No cyanosis, No edema, Normal pulses, No tenderness/swelling Skin: No rashes, No breakdown, No significant lesion Neuro: Normal gait, Normal speech, Strength at 5/5 X4 ext, Normal tone, Sensation intact, Cranial nerves 3-12 NL, Reflexes 2+ Psych/Mental Status: Mental status NL, Mood NL Assessment Obstructing Kidney stone with left hydronephrosis Hematuria Hydronephrosis Obesity BMI: 31.1 Hyponatremia Hypertension UTI CHINO Discharge plan Discharge home in a stable condition NPO at midnight Follow up at the urology office for the procedure Follows at the discharge Clinic in one-week Levofloxacin 500 mg daily for 7 days Case and plan discussed with Dr. Wolfe Consults/Reason for consult left nephrolithiasis with hydronephrosis Condition at Discharge: Good Final Diagnosis/Problems List Intractable abdominal pain possibly due to UTI CHINO 9 mm calculus seen in the distal left ureter near the UVJ. Left renal hydronephrosis Hypertension obesity Discharge Disposition: Home Discharge Instruct/Medications Diet: See Comment Diet comment: NPO at midnight for procedure tomorrow Activity: No Restrictions, As Tolerated Follow Up/Referral: 7 days follow up at the discharge clinic Medications: levofloxacin 500mg daily for 7 days Orange Discharge Statement: "Patient was advised to return to the ER or call 911 if any headaches, dizziness, shortness of breath, chest pain, abdominal pain, bleeding, fevers, or worsening of medical condition. Patient was counseled about treatment plan, medications, possible side effects, patientverbalized understanding. All questions were answered to the best of my ability. This discharge took greater then 30 minutes in planning, reviewing documentation, counseling the patient, and discussing with other team members." ASSESSMENT ASSESSMENT Assessment Intractable abdominal pain possibly due to UTI CHINO 9 mm calculus seen in the distal left ureter near the UVJ. Left renal hydronephrosis. Date of Service: Mar 06, 2024 Billing Provider: YISEL FRIEDMAN MD Common Visit Codes: 59333-[facility]/OBS DISCH DAY >30min FELY BECERRA RESIDENT Mar 06, 2024 16:21 YISEL FRIEDMAN MD Mar 08, 2024 05:55
[2024-03-06] MEDS ORDERED: LEVO750T40 PO (16:22)
== END 2024-03-06 14:00 | disposition home or self-care (01) | DRG 463 ==
LOC: ER 06:25 → EDBD 06:25 → OVERFLOW 11:09 → WEST WING 22:20
PROVIDERS: ADMIT Internal Medicine; ATTEND Internal Medicine
DX: N13.6 Pyonephrosis (principal); N17.0 Acute kidney failure with tubular necrosis; E87.1 Hypo-osmolality and hyponatremia; I10 Essential (primary) hypertension; E66.9 Obesity, unspecified; Z68.31 Body mass index [BMI] 31.0-31.9, adult; Z72.0 Tobacco use; Z79.899 Other long term (current) drug therapy; Z82.49 Family history of ischemic heart disease and other diseases of the circulatory system; Z83.3 Family history of diabetes mellitus; Z88.0 Allergy status to penicillin
CPT/HCPCS: 36415; 71045; 74176; 76775; 80048; 80053; 81001; 82962; 84154; 85025; 85610; 87086; G0378; J1885